=== PATIENT | female | born 1985 | race Caucasian/White ===

== ENCOUNTER 2018-09-19 17:55 | Emergency (ER) | payer MEDICAID, OTHER ==
[2018-09-19 17:59] VITALS: BMI 29.2
[2018-09-19 18:02] VITALS: BP 113/79; RESP 18; TEMP 98.5
[2018-09-19] MEDS ORDERED: Albuterol 0.083% Inhal Sol (2.5 mg/3 mL) UD INH STA (19:01)
[2018-09-19] MEDS ORDERED: Albuterol 0.083% Inhal Sol (2.5 mg/3 mL) UD ONE (19:10)
--- NOTE | 2018-09-19 19:45 | C.PDOC ---
History Of Present Illness 33 y/o female comes in complaining of cough and congestion x1 month. Cough is productive with clear phlegm. Patient now states that her chest hurts when she coughs. Patient denies nausea, vomiting, or tobacco use. 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 ENT: Positive for: Nose Congestion Cardiovascular: Positive for: Chest Pain Respiratory: Positive for: Cough Physical Exam - Physical Exam Appears: Non-toxic, No Acute Distress Skin: Warm, Dry Head: Atraumatic, Normacephalic Eye(s): bilateral: Normal Inspection, PERRL, EOMI Oral Mucosa: Moist Neck: Supple Chest: Tenderness (reproducible chest wall tenderness) Cardiovascular: Rhythm Regular, No Murmur Respiratory: Normal Breath Sounds, No Rales, No Rhonchi, No Wheezing Gastrointestinal/Abdominal: Soft, No Tenderness Extremity: Bilateral: Atraumatic, Normal Color And Temperature, Normal ROM Neurological/Psych: Oriented x3, Normal Speech ED Course And Treatment ECG: Interpreted By Me, Viewed By Me ECG Rhythm: Sinus Rhythm Interpretation Of ECG: Normal intervals. Normal axis. No ST/T wave abno rmalities. Rate From EC O2 Sat by Pulse Oximetry: 99 (RA) Pulse Ox Interpretation: Normal - Radiology CXR: Interpreted by Me, Viewed By Me CXR Interpretation: Yes: No Acute Disease Medical Decision Making Medical Decision Making: Impression: Bronchitis Plan: --Chest XR -- POC --Albuterol --Ibuprofen 600 mg PO --Zithromax 500 mg PO CXR preliminary read as no active disease. On re-evaluation, patient is feeling better and will be discharged home. Disposition Counseled Patient/Family Regarding: Studies Performed, Diagnosis, Need For Followup, Rx Given - Disposition Referrals: [facility] [Outside] Disposition: HOME/ ROUTINE Disposition Time: 19:43 Condition: STABLE Additional Instructions: follow up with your doctor within 2 days call to make an appointment take medications as prescribed return to ER if symptoms worsens or progress Prescriptions: Albuterol Sulfate [Proventil Hfa] 2 puff IH QID #1 hfa.aer.ad Azithromycin [Zithromax] 250 mg PO DAILY #4 tab Naproxen [Naprosyn] 500 mg PO BID PRN #16 tab PRN Reason: Pain, Moderate (4-7) Instructions: Acute Bronchitis Forms: General Discharge Instructions, [facility] ([facility]), Work Excuse - Clinical Impression Clinical Impression: Bronchitis - Scribe Statement The provider has reviewed the documentation as recorded by the Cirilo Baker Provider Attestation: All medical record entries made by the Cirilo were at my direction and personally dictated by me. I have reviewed the chart and agree that the record accurately reflects my personal performance of the history, physical exam, medical decision making, and the department course for this patient. I have also personally directed, reviewed, and agree with the discharge instructions and disposition.
[2018-09-19 20:07] VITALS: PULSE 90
--- NOTE | 2018-09-20 10:39 | RAD ---
HISTORY: cough COMPARISON: None available. TECHNIQUE: Chest PA and lateral FINDINGS: LUNGS: No focal consolidation. Please note that chest x-ray has limited sensitivity for the detection of pulmonary masses. PLEURA: No significant pleural effusion identified. No definite pneumothorax . CARDIOVASCULAR: Heart size appears within normal limits. No atherosclerotic calcification present. OSSEOUS STRUCTURES: No acute osseous abnormality identified. VISUALIZED UPPER ABDOMEN: Unremarkable. OTHER FINDINGS: None. IMPRESSION: No focal consolidation.
--- NOTE | 2018-09-20 18:30 | CARD ---
APPROVED REPORT Date of service: 09/19/2018 EKG Measurement Heart [id number] <Conclusion> Normal sinus rhythm Normal ECG
[2018-09-25 20:51] VITALS: O2SAT 99
== END 2018-09-19 20:06 | disposition home or self-care (01) ==
LOC: C.ER 17:55
DX: J40 Bronchitis, not specified as acute or chronic (principal); Z72.0 Tobacco use